=== PATIENT | male | born 1965 | race African-American/Black ===

== ENCOUNTER 2019-10-10 08:31 | Inpatient (IN) ==
[2019-10-10] MEDS ORDERED: NS 1,000 ML IV PRN (08:55)
--- NOTE | 2019-10-10 09:20 | PROVIDER DOCUMENTATION ---
HPI-Headache - General Chief Complaint: Headache Stated Complaint: MIGRAINE Time Seen by Provider: 10/10/19 08:58 Source: patient Allergies/Adverse Reactions: Patient Allergies Allergy/AdvReac Type Severity Reaction Status Date / Time No Known Allergies Allergy Verified 05/13/13 21:36 Home Medications: Home Medication List Medication Instructions Recorded Confirmed Last Taken Type Ergocalciferol (Vitamin D2) 1 cap PO . DIRECTED 10/10/19 10/10/19 Unknown History [Vitamin D] Ondansetron [Zofran] 8 mg PO Q8H PRN PRN 10/10/19 10/10/19 Unknown History Promethazine [Phenergan] 25 mg PO HS PRN 10/10/19 10/10/19 Unknown History - History of Present Illness-Headache Nature of Presenting Problem: Patient is a 54yo M who presents with complaints of a R sided migraine headache. Reports long hx of migraines for which he sees a Neurologist for. States this headache is worse than past headaches. Patient states he has had an "ongoing migraine" for 2 months, however the headache became severe this morning. Reports accompanying R arm and R leg numbness/weakness that began at approximately 0800, states symptoms are improving. Has tried numerous pain medications, Topamax, Aleve, and Zofran without improvement. Complains of dizziness, nausea/vomiting, photophobia, and phonophobia. Denies neck pain, back pain, fever/chills, CP, or SOB. Upon examination, patient is A&Ox3 and non-toxic in appearance. Headache Location: reports: frontal (R) Quality of Pain: reports: throbbing Severity: reports: moderate Onset/Duration: reports: 1-3 hours ago (worsened 0645), other (onset 2 months ago) Timing: reports: still present, improving (R arm/R leg numbness/weakness) Headache Context: reports: nothing Headache History: reports: history of migraines Any recent trauma/injury?: reports: none Headache severity at the maximum: severe Headache Exacerbated by:: reports: light, noise, movement Modifying Factors: improves with: nothing Associated Symptoms: reports: headache, dizziness, nausea, numbness in legs/feet (R), paresthesia (R arm), vomiting, vision changes (photophobia). denies: chest pain, neck/back pain, fever/chills Similar Symptoms Previously?: Yes (hx of migraines; however this migraine different) Recently seen or treated by another doctor?: No Review of Systems - Adult - REVIEW OF SYSTEMS - ADULT Constitutional: reports: no symptoms reported. denies: chills, fever Eyes: reports: see HPI, other (photophobia). denies: decreased vision, blurred vision Ears, Nose, Mouth & Throat: reports: no symptoms reported Cardiovascular: reports: no symptoms reported. denies: chest pain, palpitations Respiratory: reports: no symptoms reported. denies: cough, shortness of breath Gastrointestinal: reports: see HPI, nausea, vomiting. denies: abdominal pain Genitourinary: reports: no symptoms reported Musculoskeletal: reports: no symptoms reported. denies: back pain, neck pain Integumentary: reports: no symptoms reported Neurological: reports: see HPI, dizziness/vertigo, headache/migraines, numbness, paresthesia, other (R arm/R leg weakness; phonophobia). denies: slurred speech Psychiatric: reports: no symptoms reported Endocrine: reports: no symptoms reported Past History - Adult - PAST MEDICAL HISTORY-ADULT Review of Records: reports: Nursing Assessment Review, Medications Reviewed Neurological: reports: headaches/migraines - IMMUNIZATION STATUS Childhood Immunizations: See Nurse Assessment Flu Vaccine: See Nurse Assessment - SOCIAL HISTORY Smoking: non-smoker Physical Exam- Neurological - Physical Exam-Neuro Initial Vital Signs Reviewed: Yes General Appearance: alert, mild distress. negative: lethargic, slow to respond, obtunded Eye Exam: bilateral eye: normal inspection, PERRL, EOMI, photophobia HENMT: normocephalic/atraumatic, moist mucous membranes. negative: angioedema Head Injury: no evidence of injury Neck: non-tender, full range of motion, supple, normal inspection Respiratory: chest non-tender, lungs clear, normal breath sounds, no pleuratic chest pain, no respiratory distress, no accessory muscle use. 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 negative: abnormal speech, facial asymmetry, facial droop, facial paresthesias Coordination/Gait: ABN nose to finger (R) Motor/Sensory: pronator drift (R), weak motor strength RUE, weak motor strength RLE Neurologic: motor weakness (R arm/R leg), sensory deficit (R). negative: aphasia, EOM palsy, facial droop Integumentary: normal color, warm/dry. negative: cyanosis, jaundice, pallor Psych/Mental Status: normal mood/affect, normal thought content, normal thought process, oriented x 3 - Glascow Coma Scale Best Eye Response: (4) open spontaneously Best Verbal Response: (5) oriented Best Motor Response: (6) obeys commands Total Glascow Score: 15 Progress - PLAN OF CARE/RESULTS Progress/Plan/Lab Results: Laboratory Results - last 24 hr 10/10/19 10/10/19 10/10/19 09:39 09:40 09:40 WBC 5.70 RBC 5.05 Hgb 14.4 Hct 42.9 MCV 85.0 MCH 28.5 MCHC 33.6 RDW Std Deviation 14.2 Plt Count 214 MPV 10.5 H Immature Gran % (Auto) 0.0 Neut % (Auto) 77.1 H Lymph % (Auto) 14.6 L [place] % (Auto) 7.5 Eos % (Auto) 0.4 Baso % (Auto) 0.4 Immature Gran # (Auto) 0.00 Neut # (Auto) 4.40 Lymph # (Auto) 0.83 L [place] # (Auto) 0.43 Eos # (Auto) 0.02 Baso # (Auto) 0.02 PT INR PTT (Actin FS) Sodium 143 Potassium 3.6 Chloride 106 Carbon Dioxide 24 L Anion Gap 13 BUN 13 Creatinine 0.9 Estimated GFR/1.73 m2 > 60 BUN/Creatinine Ratio 14 Glucose 104 POC Glucose 86 Calculated Osmolality 285 Calcium 9.1 Total Bilirubin 0.30 AST 17 ALT 15 Alkaline Phosphatase 59 Troponin T Total Protein 7.1 Albumin 4.3 Globulin 3.0 Albumin/Globulin Ratio 2.0 Urine Source Urine Color Urine Turbidity Urine pH Ur Specific [place] Urine Protein Ur Glucose (Stick) Ur Ketones (Stick) Urine Blood Urine Nitrite Urine Bilirubin Urobilinogen Dipstick Urine Leukocytes Urine WBC (Auto) Urine RBC (Auto) U Epithel Cells (Auto) Urine Bacteria (Auto) Urine Opiates Screen Ur Oxycodone Screen Urine Methadone Screen U Propoxyphene Qual Ur Barbituates Screen Ur Tricyclics Screen Ur Phencyclidine Scrn Ur Amphetamines Screen U Methamphetamines Scrn U Benzodiazepines Scrn Urine Cocaine Screen U Cannabinoids Screen 10/10/19 10/10/19 10/10/19 09:40 09:40 09:52 WBC RBC Hgb Hct MCV MCH MCHC RDW Std Deviation Plt Count MPV Immature Gran % (Auto) Neut % (Auto) Lymph % (Auto) [place] % (Auto) Eos % (Auto) Baso % (Auto) Immature Gran # (Auto) Neut # (Auto) Lymph # (Auto) [place] # (Auto) Eos # (Auto) Baso # (Auto) PT 13.2 INR 0.95 PTT (Actin FS) 34.3 Sodium Potassium Chloride Carbon Dioxide Anion Gap BUN Creatinine Estimated GFR/1.73 m2 BUN/Creatinine Ratio Glucose POC Glucose Calculated Osmolality Calcium Total Bilirubin AST ALT Alkaline Phosphatase Troponin T < 0.010 Total Protein Albumin Globulin Albumin/Globulin Ratio Urine Source CLEAN CATCH Urine Color YELLOW Urine Turbidity CLEAR Urine pH 8.5 Ur Specific [place] 1.020 Urine Protein TRACE A Ur Glucose (Stick) NEGATIVE Ur Ketones (Stick) NEGATIVE Urine Blood NEGATIVE Urine Nitrite NEGATIVE Urine Bilirubin NEGATIVE Urobilinogen Dipstick NORMAL Urine Leukocytes NEGATIVE Urine WBC (Auto) <10 Urine RBC (Auto) <10 U Epithel Cells (Auto) <10 Urine Bacteria (Auto) NEGATIVE Urine Opiates Screen Ur Oxycodone Screen Urine Methadone Screen U Propoxyphene Qual Ur Barbituates Screen Ur Tricyclics Screen Ur Phencyclidine Scrn Ur Amphetamines Screen U Methamphetamines Scrn U Benzodiazepines Scrn Urine Cocaine Screen U Cannabinoids Screen 10/10/19 09:52 WBC RBC Hgb Hct MCV MCH MCHC RDW Std Deviation Plt Count MPV Immature Gran % (Auto) Neut % (Auto) Lymph % (Auto) [place] % (Auto) Eos % (Auto) Baso % (Auto) Immature Gran # (Auto) Neut # (Auto) Lymph # (Auto) [place] # (Auto) Eos # (Auto) Baso # (Auto) PT INR PTT (Actin FS) Sodium Potassium Chloride Carbon Dioxide Anion Gap BUN Creatinine Estimated GFR/1.73 m2 BUN/Creatinine Ratio Glucose POC Glucose Calculated Osmolality Calcium Total Bilirubin AST ALT Alkaline Phosphatase Troponin T Total Protein Albumin Globulin Albumin/Globulin Ratio Urine Source Urine Color Urine Turbidity Urine pH Ur Specific [place] Urine Protein Ur Glucose (Stick) Ur Ketones (Stick) Urine Blood Urine Nitrite Urine Bilirubin Urobilinogen Dipstick Urine Leukocytes Urine WBC (Auto) Urine RBC (Auto) U Epithel Cells (Auto) Urine Bacteria (Auto) Urine Opiates Screen NONE DETECTED Ur Oxycodone Screen NONE DETECTED Urine Methadone Screen NONE DETECTED U Propoxyphene Qual NONE DETECTED Ur Barbituates Screen NONE DETECTED Ur Tricyclics Screen NONE DETECTED Ur Phencyclidine Scrn NONE DETECTED Ur Amphetamines Screen NONE DETECTED U Methamphetamines Scrn NONE DETECTED U Benzodiazepines Scrn NONE DETECTED Urine Cocaine Screen NONE DETECTED U Cannabinoids Screen NONE DETECTED Orders Category Date Time Status Admit - [facility] Routine AdmDCTranf 10/10/19 11:19 Active Activity - Up with Assistance ORDERED Care 10/10/19 11:19 Active Apply Mechanical Device [QM] ORDERED Care 10/10/19 11:19 Active Elevate Head of Bed DIRECTED Care 10/10/19 11:19 Active Finger Stick Blood Sugar (ED) DIRECTED Care 10/10/19 09:10 Completed IV Insertion ORDERED Care 10/10/19 11:19 Completed Intake and Output-Strict ORDERED Care 10/10/19 11:19 Active Neurological Check ORDERED Care 10/10/19 11:19 Active Saline Loc NOW Care 10/10/19 09:10 Completed Vital Signs Order Q 4-HR ASSESS Care 10/10/19 11:19 Active Z-Document. for Tele Applied ORDERED Care 10/10/19 11:19 Completed Social Service Consult Routine Cons 10/10/19 11:[address] HEAD W/O CONTRAST [CT] Stat Exams 10/10/19 08:56 Completed MRA BRAIN W/O CONTRAST [MRI] Routine Exams 10/10/19 10:21 Completed MRI BRAIN W/O CONTRAST [MRI] Routine Exams 10/10/19 10:21 Completed BASIC METABOLIC PANEL [CHEM] Routine Lab 10/11/19 06:00 Ordered CBC WITH DIFF [HEME] Routine Lab 10/11/19 06:00 Ordered CBC WITH ELECTRONIC DIFF [HEME] Stat Lab 10/10/19 09:40 Completed COMPREHENSIVE METABOLIC PANEL [CHEM] Stat Lab 10/10/19 09:40 Completed LIPID PROFILE W/DIR LDL [LIPIDS] Routine Lab 10/11/19 06:00 Ordered PROTIME WITH INR [COAG] Stat Lab 10/10/19 09:40 Completed PTT [COAG] Stat Lab 10/10/19 09:40 Completed TROPONIN T Stat Lab 10/10/19 09:40 Completed URINALYSIS W/POSS RFLX CULT [URINALYSIS] Stat Lab 10/10/19 09:52 Completed URINE DRUG SCREEN PL Stat Lab 10/10/19 09:52 Completed 0.9% Sodium Chloride Inj [Ns] 1,000 ml Med 10/10/19 08:55 Discontinued IV As Directed mls/hr Acetaminophen [Tylenol] Med 10/10/19 11:19 Active 650 mg PO Q6H PRN PRN Aspirin Med 10/10/19 11:19 Active 325 mg PO DAILY Diphenhydramine [Benadryl] Med 10/10/19 09:58 Discontinued 25 mg IV NOW ONE Metoclopramide [Reglan] Med 10/10/19 09:58 Discontinued 10 mg IV NOW ONE Ondansetron [Zofran] Med 10/10/19 09:53 Discontinued 4 mg IV NOW ONE Ondansetron [Zofran] Med 10/10/19 11:19 Active 4 mg IV Q4H PRN PRN Telemetry [OM.EQ] Routine Oth 10/10/19 11:19 Active Carotid Ultrasound Routine Ther 10/10/19 10:23 Completed EKG [EKG] Stat Ther 10/10/19 08:56 Draft Echo Spec/Color Doppler Routine Ther 10/10/19 10:23 Draft Physical Therapy Eval/Treatment [OM.PT] Routine Ther 10/10/19 11:19 Active Speech Evaluation [OM.SPT] Routine Ther 10/10/19 11:19 Active Transfer/Admit Order [TRANSFER] Routine Transfer 10/10/19 10:19 Completed Imaging results, plan of care, and need for admission for TIA workup discussed with patient who agrees with and verbalizes understanding. Result Diagrams: 10/10/19 09:40 10/10/19 09:40 - EKG 1 Time of EKG reading by physician:: 10:00 EKG Read and Signed by:: Chao Graves EKG Interpretation (*Must complete 3 of following elements*): Normal (Borderline) Rate: 67 Rhythm: NSR [place]: normal QRS: LVH (minimal voltage criteria, may be normal variant) OH Interval: normal ST Wave: normal - CT/MRI 1 CT Study: Head Impression: See EMR Report ([facility] - [address], [address], [place] [address] [facility] - [address] , [place] [address] Department of Imaging Patient: SAGRARIO MCCAINADM Date: 10/10/19MR#: [id number] : 1965ADM Status: PRE ERAcct#: [id number] Age/Sex: 54/MRoom/Bed: Loc: P.ED Ordering Physician: Chao Graves MD Family Physician: Jey Man MD Reason for Procedure: cva sx ___ Signed EXAM: CT HEAD W/O CONTRAST - 10/10/2019 HISTORY: cva sx TECHNIQUE: CT head without contrast COMPARISON: None. FINDINGS: There is no evidence of intracranial hemorrhage, mass effect, midline shift, or hydrocephalus. There is no evidence of infarct, although acute infarcts may not be immediately visible. There is no evidence of skull fracture. Visualized portions of paranasal sinuses and mastoid air cells appear clear except for a mucous retention cyst at the base of the right frontal sinus. 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 IMPRESSION: No visible acute intracranial abnormality. No hemorrhage or mass effect. This exam was performed using automated exposure control, adjustment of mA or kV according to patient size, and/or use of iterative reconstruction technique. Electronically signed by Jey Obregon 10/10/2019 9:36 AM 10/10/19 0936 Interpreting Physician: Jey Obregon MD Dictated Date/Time: 931 cc: Chao Graves MD; Jey Man MD) - CONSULTS/PCP/HOSPITALIST Notification #1 *Consult/PCP/Hospitalist*: Dr. Mccoy, Hospitalist Time Discussed: 09:55 Reason/Comments: Concern for TIA Consult Disposition: Will see in ED, Admit Departure - Departure Date of Disposition Decision: 10/10/19 Time of Disposition Decision: 09:55 DIAGNOSIS: Weakness of right upper extremity, Weakness of right lower extremity, Numbness and tingling of right arm, Numbness and tingling of right leg, Sensory deficit, right Migraine Qualifiers: Migraine type: unspecified Status migrainosus presence: without status migrainosus Intractability: not intractable Qualified Code(s): G43.909 - Migraine, unspecified, not intractable, without status migrainosus Disposition: ADMITTED INPATIENT 09 Certified Medical Emergency: Emergent Condition: Stable - Critical Care Note This patient required my direct & personal management of CC.: No Attestation - Physician/ NATALIIA Attestation Patient care was provided by Advanced Practice Provider:: Yes Advanced Practice Provider:: Viji Back Advanced Practice Provider documentation review:: The Mid-level provider documentation, treatment plan and medical decision making was reviewed by the physician who agrees with all treatment and medical decision making by the [facility]. The physician spent face to face time with patient:: No Advanced Practice Provider documentation review:: Supervising physician onsite and consulted in the evaluation and care of this patient. The physician did not have a face to face encounter with the patient. - NIH Stroke Scale NIH Type: Initial Evaluation Level of Consciousness: 0-Alert LOC Questions (ask month and age): 0-Answers Both Correctly LOC Commands (ask to open & close eyes;make a fist, let go): 0-Obeys Both Correctly Best Gaze (horizontal eye movement): 0-Normal Visual (use finger movement, counting or visual threat): 0-No Visual Loss Facial Palsy (show teeth or raise eyebrows & close eyes tght: 0-Symmetrical Movement Motor Function-left arm: 0-Normal Motor Function-right arm: 1-Drift Motor Function-left le-Normal Motor Function-right le-Drift Limb Ataxia([id number], or heel to carter): 2-Present in two limbs Sensory(pin prick to face,arms,trunk,legs-compare side/side): 1-Mild to Moderate Decrease in Sensation Best Language(name item/read sentence.Ex-Down to Earth): 0-No Aphasia Dysarthria(Pt read words or say words Ex.Mama,Tip-Top,Thanks: 0-Normal Articulation Extinction and Inattention: 0-Normal NIH Total Score: 4
--- NOTE | 2019-10-10 09:38 | Diag Imaging Result Doc PS360 ---
EXAM: CT HEAD W/O CONTRAST - 10/10/2019 HISTORY: cva sx TECHNIQUE: CT head without contrast COMPARISON: None. FINDINGS: There is no evidence of intracranial hemorrhage, mass effect, midline shift, or hydrocephalus. There is no evidence of infarct, although acute infarcts may not be immediately visible. There is no evidence of skull fracture. Visualized portions of paranasal sinuses and mastoid air cells appear clear except for a mucous retention cyst at the base of the right frontal sinus. 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 IMPRESSION: No visible acute intracranial abnormality. No hemorrhage or mass effect. This exam was performed using automated exposure control, adjustment of mA or kV according to patient size, and/or use of iterative reconstruction technique. Electronically signed by Jey Obregon 10/10/2019 9:36 AM
[2019-10-10] MEDS ORDERED: ZOFRAN IV ONE (09:53)
[2019-10-10] MEDS ORDERED: BENADRYL IV ONE (09:58)
[2019-10-10] MEDS ORDERED: REGLAN IV ONE (09:58)
[2019-10-10 09:59] LABS: URINE SOURCE CLEAN CATCH
[2019-10-10 10:03] LABS: BILIRUBIN URINE NEGATIVE (NEGATIVE); BLOOD URINE NEGATIVE (NEGATIVE); COLOR YELLOW; GLUCOSE URINE NEGATIVE (NEGATIVE); KETONE URINE NEGATIVE (NEGATIVE); LEUKOCYTES URINE NEGATIVE (NEGATIVE); NITRITE URINE NEGATIVE (NEGATIVE); PH URINE 8.5; PROTEIN URINE TRACE mg/dL (NEGATIVE); TURBIDITY URINE CLEAR (CLEAR); UROBILINOGEN URINE NORMAL (NORMAL)
[2019-10-10 10:04] LABS: UR EPITHELIAL CELLS <10 /HPF (<10); URINE BACTERIA NEGATIVE /HPF; URINE RBC <10 /HPF (<10); URINE WBC <10 /HPF (<10)
[2019-10-10 10:09] LABS: BASO# 0.02 X1000 (0.0-0.2); BASO% 0.4 % (0.0-0.8); EOS# 0.02 X1000 (0.0-0.7); EOS% 0.4 % (0.0-10.0); HEMATOCRIT 42.9 % (42.0-52.0); HEMOGLOBIN 14.4 g/dL (14.0-18.0); LYMPH# 0.83 X1000 (1.2-3.4); LYMPH% 14.6 % (20.5-51.1); MCH 28.5 PG (27-31); MCHC 33.6 g/dL (33-37); MONO# 0.43 X1000 (0.11-0.59); MONO% 7.5 % (1.7-9.3); MPV 10.5 FL (7.4-10.4); NEUT% 77.1 % (42.2-75.2); PLT 214 X1000 (130-400); RBC 5.05 XMIL (4.7-6.1); RDW 14.2 % (11.5-14.5)
[2019-10-10 10:13] LABS: UR AMPHETAMINES QUAL NONE DETECTED (NONE DETECT); UR BARBITUATES QUAL NONE DETECTED (NONE DETECT); UR BENZODIAZEPIN QUAL NONE DETECTED (NONE DETECT); UR CANNABINOIDS QUAL NONE DETECTED (NONE DETECT); UR COCAINE QUAL NONE DETECTED (NONE DETECT); UR METHADONE QUAL NONE DETECTED (NONE DETECT); UR METHAMPHETAMINE QUAL NONE DETECTED (NONE DETECT); UR OPIATES QUAL NONE DETECTED (NONE DETECT); UR OXYCODONE QUAL NONE DETECTED (NONE DETECT); UR PCP QUAL NONE DETECTED (NONE DETECT); UR PROPOXYPHENE QUAL NONE DETECTED (NONE DETECT); UR TCA QUAL NONE DETECTED (NONE DETECT)
[2019-10-10 10:17] LABS: INR 0.95; PROTIME 13.2 Seconds (11.0-16.0)
[2019-10-10 10:18] LABS: PTT 34.3 Seconds (22.3-41.8)
[2019-10-10 10:36] LABS: AGAP 13; ALBUMIN 4.3 g/dL (3.5-5.0); ALKALINE PHOSPHATASE 59 U/L (32-122); BUN 13 mg/dL (8-22); CALCIUM 9.1 mg/dL (8.8-10.2); CHLORIDE 106 mmol/L (98-107); COSMO 285; CREATININE 0.9 mg/dL (0.7-1.2); ESTIMATED GFR > 60; GLUCOSE 104 mg/dL (70-104); GOT 17 U/L (10-34); GPT 15 U/L (10-44); POTASSIUM 3.6 mmol/L (3.5-5.1); SODIUM 143 mmol/L (136-145); TCO2 24 mmol/L (25-35); TOTAL PROTEIN 7.1 g/dL (6.3-8.3)
--- NOTE | 2019-10-10 10:54 | HISTORY AND PHYSICAL ---
ADDENDUM REPORT: The patient is a 54-year-old male who has a known history of migraines. States he has had problems with migraines for the last 1-1/2 years, sometimes severe. Approximately 8 months ago or so, he had similar symptoms of left-sided weakness. After a severe headache everything resolved. He awakened this morning with a headache but felt fine, went to work and started having right-sided weakness in his right upper and lower extremity. Notes that he did not fall from the weakness, but started having some tingling and eventually came to the ER. We were notified of him approximately 3 to 4 hours after his symptoms had started. Currently, he has some right-sided weakness. He was unable to raise his hand against gravity to shake my hand; however, when he was talking, he was able to raise his hand off the bed against gravity, as well as to move his fingers and clench his fist. However, when tested, his strength is 1/6. He is awake, alert, oriented. He does appear to be in pain from a headache. He denies any fevers, chills, cough, congestion. Denies any symptoms prior to this morning other than his chronic headaches. CT of the head was normal. Labs so far have been normal. We are going to check an MRI, carotid, and will follow. cc: Manpreet Mccoy MD
--- NOTE | 2019-10-10 11:13 | EKG Report ---
Test Performed on : 10/10/2019 09:59:53 AM Test Reason : cvs sx Blood Pressure : / mmHG Vent. Rate : 067 BPM Atrial Rate : 067 BPM P-R Int : 160 ms QRS Dur : 094 ms QT Int : 412 ms P-R-T Axes : 069 016 031 degrees QTc Int : 435 ms Normal sinus rhythm. Minimal voltage criteria for LVH, may be normal variant Borderline ECG No previous ECGs available Unconfirmed Result
[2019-10-10] MEDS ORDERED: ZOFRAN IV PRN (11:19)
--- NOTE | 2019-10-10 13:45 | Vascular Study Report ---
EXAM: Carotid Ultrasound - 10/10/2019 HISTORY: r/o cva TECHNIQUE: Carotid flow studies COMPARISON: None. FINDINGS: There is no substantial atherosclerotic plaquing identified in the right carotid system. Maximum systolic velocity in the right internal carotid is 79 cm/s, and maximum diastolic velocity is 17 cm/s. The right internal to common carotid systolic velocity ratio is 0.70. The flow velocities and ratio suggests 0-39% stenosis at the right internal carotid. The right vertebral demonstrates antegrade flow. There is no substantial atherosclerotic plaquing identified in the left carotid system. Maximum systolic velocity left internal carotid is 40 cm/s, maximum diastolic velocity is 20 cm/s. The left internal to common carotid systolic velocity ratio is 0.38. The flow velocities and ratio suggests 0-39% stenosis at the left internal carotid. The left vertebral demonstrates antegrade flow. IMPRESSION: 0-39% stenosis at right internal carotid. 0-39% stenosis at left internal carotid. Electronically signed by Jey Obregon 10/10/2019 1:42 PM
--- NOTE | 2019-10-10 14:21 | Diag Imaging Result Doc PS360 ---
EXAM: MRI BRAIN W/O CONTRAST - 10/10/2019 HISTORY: r/o cva TECHNIQUE: MRI brain without contrast COMPARISON: 10/10/2019 CT head without contrast FINDINGS: There is no evidence of intracranial hemorrhage, mass effect, midline shift, or hydrocephalus. The diffusion weighted images show no areas of restricted diffusion (no evidence of acute infarct). There are no other substantial signal abnormalities identified. IMPRESSION: Unremarkable exam. No evidence of infarct. Electronically signed by Jey Obregon 10/10/2019 2:18 PM
--- NOTE | 2019-10-10 14:28 | Diag Imaging Result Doc PS360 ---
EXAM: MRA BRAIN W/O CONTRAST - 10/10/2019 HISTORY: r/o cva TECHNIQUE: MRA brain without contrast. [id number] MR angiogram of the intracranial circulation with 3-D MIP images obtained. COMPARISON: None. FINDINGS: The distal portions of the bilateral anterior cerebral arteries appear to arise from a common trunk. The common trunk is supplied via the left internal carotid artery. This is compatible with congenital variant or anomaly. No major intracranial arterial occlusion identified. There is possibly some narrowing of the distal portions of the bilateral posterior cerebral arteries. No other discrete stenosis of major intracranial arteries identified. There is no discrete aneurysm identified. 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 Possible narrowing of the distal portions of the bilateral posterior cerebral arteries. Electronically signed by Jey Obregon 10/10/2019 2:25 PM
--- NOTE | 2019-10-10 15:14 | ECHO REPORT ---
ORDER DATE: 10/10/2019 INTERPRETING PHYSICIAN: Dr. Raudel Irving. ECHOCARDIOGRAPHIC MEASUREMENTS: 1. Interventricular septum: 1.4 cm. 2. Left ventricular posterior wall: 1.3 cm. 3. Diastolic diameter: 4.1 cm. 4. Left atrium: 2.4 cm. 5. Aorta: 3.4 cm. SUMMARY OF THE 2-DIMENSIONAL IMAGIN. Aortic valve leaflets are trileaflet. 2. Pulmonic valve was normal. 3. Tricuspid valve was normal. 4. Mitral valve was normal. 5. Normal left ventricular cavity size. 6. Concentric left ventricular hypertrophy. 7. Estimated ejection fraction of 65%. 8. There is mild mitral regurgitation. 9. Mild tricuspid regurgitation. 10. Peak velocity across the tricuspid valve was less than 2 meters per second. 11. Peak velocity across the aortic valve less than 2 meters per second. 12. By Doppler studies, there is no aortic stenosis or regurgitation. 13. There is no pericardial effusion or obvious intracardiac mass or thrombus seen. 14. Normal right ventricular cavity size and function. cc: Raudel Irving MD
--- NOTE | 2019-10-10 15:52 | HISTORY AND PHYSICAL ---
PRIMARY CARE PROVIDERS: Jey Man MD NEUROLOGIST: Leida out [facility] CHIEF COMPLAINT: Headache. HISTORY OF PRESENT ILLNESS: Mr. To is a 54-year-old gentleman who really reports no past medical history except ongoing issues with severe migraines for 1 year. He reports, however, over the last 3 weeks he has had some issues with hypertension but is not on any medications for it. He has been followed by neurologist out [facility] for these migraines. He reported twice last year with these migraines. They were severe and he did have some associated weakness with it, but not this bad. He reports random things tend to trigger them such as headlights on cars. Sometimes the sun, the other day a thunder storm treated triggered. He does not know any of any foods that trigger his migraines. He reported this morning at 3 a.m. when he got up he did not feel right, but he went ahead and went into work. When he walked into a particular area with the lights were he felt funny. He had an episode of nausea and vomiting. Then his right leg and arm went weak. He had 2 falls as a result of that. He does have photophobia and phonophobia. At this time, he does not feel that the weakness is resolving. He has not appreciated any slurred speech or difficulty swallowing. Workup in the ED with a head CT did not show anything acute. His EKG shows a normal sinus rhythm, as well as criteria for LVH. Laboratory data is essentially normal. We will put him and do a full evaluation for TIA versus CVA. PAST MEDICAL HISTORY: Migraines. PAST SURGICAL HISTORY: Denies. FAMILY HISTORY: No coronary artery disease. No diabetes. Father of lung cancer at the age of 80. SOCIAL HISTORY: Works at [employer]. He does have a living sister. He denies any tobacco vaping, marijuana or alcohol or illicit drug use. ALLERGIES: No known drug allergies. HOME MEDICATIONS: Are not verified yet. They are currently being compiled. REVIEW OF SYSTEMS: Twelve-point review of systems completely negative except for those mentioned in HPI. PHYSICAL EXAMINATION: VITAL SIGNS: Temperature is 97.6 degrees, heart rate 55, respirations 20, blood pressure 129/88, O2 is 100% on room air. GENERAL: Mr. To is a 54-year-old male who is lying in the bed on his left side with his eyes closed in no acute distress. He awakens easily. HEENT: Atraumatic, normocephalic. PERRL. NECK: Supple. Trachea midline. Mucous membranes are moist. CARDIOVASCULAR: S1, S2 appreciated. No murmurs, gallops, rubs noted. RESPIRATORY: Lung sounds clear bilaterally. GASTROINTESTINAL: Abdomen soft, nontender, nondistended. Positive bowel sounds 4 quadrants. NEUROLOGIC: The patient was initially asleep lying on his left side. However, he awakened easily to voice. He answered all questions appropriately. However, upon physical examination his strength on the right was 1/6 on upper extremity. He was maybe 3/6 on the left. He had a weak smile. He barely stuck out his tongue. I could not get him to shoulder shrug at all. He barely moved his left foot. He would not move his right leg. He could not lift either arm off the bed, however they were able to stand him up to weigh him previously in the room. He feels that his right hand is swollen. However, there is no obvious swelling or abnormalities. There is no facial drooping. There is no slurred speech. No facial numbness. No swelling. However, he feels like the right side of his face is swollen. DIAGNOSTICS: Head CT did not show anything acute. Echocardiogram currently pending. Brain MRI, MRA pending. Carotid Dopplers pending. LABORATORY DATA: White count 5, hemoglobin and hematocrit 14 and 42, platelet count is 214,000. Sodium 143, potassium 3.6, BUN 13, creatinine 0.9, blood glucose is 104. Urinalysis is negative. Toxicology screen negative. The patient states he takes oxycodone; there was none detected. ASSESSMENT AND PLAN: 1. Known migraine headaches with reported right upper and lower extremity weakness with some numbness and tingling. We will rule out for cerebrovascular accident, transient ischemia attacks for workup with MRI, MRA, carotids, echocardiogram. Head CT was negative. We will do complete neuro checks. Physical therapy, occupational therapy, speech and swallow evaluation. Check lipid profile in the a.m. Continue daily aspirin. 3. Further recommendations to follow physician evaluation, laboratory and diagnostic data. Dictated by TEODORO Armas for Manpreet Mccoy MD cc: MD Manpreet Quintana MD [facility]
[2019-10-10] MEDS: ASPIRIN PO SCH (16:29)
[2019-10-10] MEDS: TYLENOL PO PRN (20:25)
[2019-10-11 06:36] LABS: BASO# 0.02 X1000 (0.0-0.2); BASO% 0.4 % (0.0-0.8); EOS% 2.2 % (0.0-10.0); HEMATOCRIT 44.2 % (42.0-52.0); HEMOGLOBIN 14.4 g/dL (14.0-18.0); LYMPH# 1.87 X1000 (1.2-3.4); LYMPH% 40.2 % (20.5-51.1); MCH 27.9 PG (27-31); MCHC 32.6 g/dL (33-37); MCV 85.5 FL (81-99); MONO# 0.51 X1000 (0.11-0.59); MPV 10.2 FL (7.4-10.4); NEUT# 2.15 X1000 (1.4-6.5); NEUT% 46.2 % (42.2-75.2); PLT 207 X1000 (130-400); RBC 5.17 XMIL (4.7-6.1); RDW 14.5 % (11.5-14.5); WBC 4.65 X1000 (4.8-10.8)
[2019-10-11 06:57] LABS: AGAP 10; BUN 15 mg/dL (8-22); CALCIUM 8.9 mg/dL (8.8-10.2); CHLORIDE 106 mmol/L (98-107); COSMO 278; CREATININE 0.9 mg/dL (0.7-1.2); ESTIMATED GFR > 60; GLUCOSE 90 mg/dL (70-104); POTASSIUM 3.8 mmol/L (3.5-5.1); SODIUM 139 mmol/L (136-145); TCO2 23 mmol/L (25-35)
[2019-10-11] MEDS: ASPIRIN PO SCH (08:42)
--- NOTE | 2019-10-11 09:47 | PROGRESS NOTE ---
DATE: 10/11/2019 SUBJECTIVE: The patient still has sporadic neurologic complaints. He is starting to feel his right foot a little bit better. OBJECTIVE: Vital Signs: On physical exam, vital signs reviewed. Temperature 97.7, pulse 57, respiratory rate 18, blood pressure 101/64. General: Patient is awake, alert. He is in no respiratory distress. HEENT: Normocephalic. Neck: Supple. Cardiovascular: Regular rate. Chest: Clear. Abdomen: Soft. Neurologic: Difficult to actually assess his neurologic exam. He appears completely unable to plantar flex or dorsiflex his foot. However, he is able to use his leg to stand up to get weight check. This would be inconsistent at best. 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 ASSESSMENT: 1. Acute neurologic event, likely stress related. 2. Migraine. PLAN: Thankfully his MRI, CT, carotid, and cholesterol all are normal. We will continue to follow. Hopefully, his symptoms will improve and he can be discharged home. cc: Manpreet Mccoy MD
[2019-10-11] MEDS: TYLENOL PO PRN ×2 (11:56→19:24)
--- NOTE | 2019-10-11 12:38 | CONSULTATION ---
DATE OF CONSULTATION: 10/11/2019 HISTORY OF PRESENT ILLNESS: Mr. To is 54 years old and he reports headache and right-sided weakness. History from the patient is that he began having headaches as a teenager. In recent years, headaches are typically unilateral, mostly retro-orbital and parietal, pounding and throbbing, lasting 2 days. Headache sometimes lasts as long as 4 days. He reports headaches occur about 3 times a month, lasting 2 or more days per episode. He believes the right and left retro-orbital areas are affected with equal frequency, but each headache is unilateral. He sometimes occasionally has some blurred vision or cloudy vision during headache. He has nausea, occasional vomiting, prominent photophobia and phonophobia with headache. Once, approximately 13 months ago, he was having a bad headache, stood to go to the bathroom, felt odd, noticed cloudy vision and fell. At that point, he discovered numbness in the left limbs. That resolved spontaneously over about 8 hours, by his report. Otherwise, he has never had focal neurologic feature to headache before yesterday. He was at work yesterday with a moderate headache, not the worst headache of his life, but not a mild headache. Headache was right-sided. He became nauseated, went to the bathroom, vomited, got some emesis on his clothing and cleaned that off. As he left the bathroom, he felt lightheaded and dizzy. He decided he should leave work. He called a family member to pick him up. As he was exiting the workplace, he remembers reaching to a handrail on the left, missing the handrail with his left hand and falling. He discovered that his right leg seemed to be weak. Fall was witnessed by coworkers who helped him and assisted him so that he got down without injury. He then noticed weakness in the right arm. There was not clear language disturbance. There was not a focal vision disturbance. There was never altered consciousness, altered awareness, memory gap. Based on his history, there was not dysarthria or dysphagia. He was picked up and carried by 3 men to a car, transported to the hospital, evaluated in the emergency room and admitted. He reports his deficit persisted through the day yesterday. Today, he believes he is a little bit better. He notices some discomfort in the right foot and right arm which he interprets to be sign of improvement. There is no history of serious head injury. He has never had diagnosed stroke, seizure, other neurologic event. He denies ethanol misuse. He denies illicit drug use. Caffeine intake is variable, usually a few days per week. He has never noticed caffeine intake to influence his headaches. There is family history of headache, including his mother. For headache management, he started topiramate with Trokendi XR within the last year. He believes his Trokendi XR dose is 100 mg daily. He believes that was not providing substantial benefit, but he was not having any adverse effects. He reports adding divalproex at uncertain dose a few months ago, and he believes that has provided some benefit. He continues divalproex and Trokendi, but he is not certain about the doses. For abortive management, he has sumatriptan, uncertain dose, to use as needed and that helps often. He reports using Emgality monthly for about 6 months without benefit, and he stopped that within the last few months. He does not recall taking amitriptyline or beta wei. He reports Dr. Naranjo has been his treating neurologist in [place] with last visit about a month ago. He reports first scheduled [facility] evaluation in [place] in about 2 weeks. Workup here includes noncontrast CT followed by noncontrast brain MRI and brain MRA. These are all unremarkable. Routine labs show nothing remarkable. Urine drug screen was all negative on admission. He has been afebrile. Systolic blood pressures have ranged 100s to 120s. PHYSICAL EXAMINATION: On exam, Mr. To is awake, alert, attentive, appropriate, oriented. Speech is not dysarthric. Language function is intact on usual bedside testing. Recent and remote memory are good. Head and neck are unremarkable. There is no meningismus. Visual blanca are full, tested grossly by confrontational finger counting monocularly and binocularly. Extraocular movements full. Pupils react to light. Facial motility is symmetric. He has some equivocal responses on light touch testing of sensation across the face. Gag is intact. Tongue is midline. Shoulder shrug is equal. Strength is normal in the left limbs. On the right, there was not a definite motor deficit. He demonstrated some voluntary contraction stiffening each right limb rather than performing the tasks requested. When I passively elevated the right arm or leg from the bed, he maintained that position for a 0.5 second or so before controlling the limb in soft descent to the bed. There was right gluteus meredith contraction when he raised his left leg while supine. There was not similar left gluteus meredith contraction when he was asked to attempt to raise his right leg. Plantar response is silent bilaterally. Reflexes are 1+ at the ankles, 1+ at the knees, 1+ at the wrists symmetrically. His responses on sensory testing are inconsistent, but he generally reports better sensation over the left limbs than the right. His responses on proprioception testing in the right hand at the second finger PIP joint were so consistently incorrect as to indicate good proprioception present. Proprioception is normal in the left index finger PIP joint. I did not test his gait. As I left the bedside, he reported need to use a urinal. I offered to help and he declined. As I was leaving, I observed him moving himself around in the bed using his right limbs much more purposefully than he had done when asked to perform certain tasks with the right limbs. IMPRESSION: 1. History sounds like episodic migraine, frequent headaches. He may be showing some benefit with current management with topiramate and divalproex. He told me he thought his sister had those medications with her today to check doses, but she does not. I cannot find a listing of his current doses. I believe there has been some inconsistency or discrepancy with his prior medication dose reports and those inconsistencies have not yet been rectified even after phone call to his pharmacy. 2. Subjective right-sided weakness. I do not find an objective deficit. I encouraged him to be careful with activities, to use good sense, and to try not to get into any situation in which right-sided impairment might cause him to injure himself or someone else. I specifically suggested that he not drive until his right limbs are recovered. I would consider continuing topiramate and divalproex, consider increasing dose on one of those and then possibly tapering off the other. However, since he has headache specialty clinic appointment coming up so soon, I would not make any major changes today. I encouraged him to keep that appointment. Thanks for asking Neurology to see Mr. To. cc: MD YASSINE Elliott III
[2019-10-12] MEDS: ASPIRIN PO SCH (08:23)
[2019-10-12] MEDS: DEPAKOTE PO SCH ×2 (10:01→20:16)
[2019-10-12] MEDS: NON-FORMULARY MED PO SCH (10:01)
[2019-10-12] MEDS: TYLENOL PO PRN (16:41)
--- NOTE | 2019-10-12 17:57 | PROGRESS NOTE ---
DATE: 10/12/2019 SUBJECTIVE: The patient notes that he still is having a headache. He notes that he is starting to have pain in his left heel. He states that he is feeling better. OBJECTIVE: Vital signs reviewed. Temperature 97 degrees, pulse 54, respiratory rate 18, BP 108/70.General: The patient is awake. He is in no respiratory distress. Neck is supple. Cardiovascular: Regular rate. Chest clear. Abdomen soft. Extremities: Moves all extremities. Neurologic: His neurologic exam is quite nonfocal. Although he has weakness in his right upper extremity, this appears to wax and wane. He has been noted by Physical Therapy to have changing weakness. ASSESSMENT: 1. Migraine. We are going to restart his home medications. Certainly expect this migraine may be contributing to his neurologic issues. 2. Acute stress reaction. PLAN: We will continue to follow the patient. Hopefully his headache will improve and he can discharge home soon. cc: Manpreet Mccoy MD
[2019-10-13] MEDS: NON-FORMULARY MED PO SCH (11:05)
[2019-10-13] MEDS: ASPIRIN PO SCH (11:05)
[2019-10-13] MEDS: DEPAKOTE PO SCH ×2 (11:05→21:38)
[2019-10-13] MEDS: TYLENOL PO PRN ×2 (11:26→21:38)
--- NOTE | 2019-10-13 12:57 | PROGRESS NOTE ---
DATE: 10/13/2019 SUBJECTIVE: The patient states he is uncomfortable going home. States he would rather go to rehab. OBJECTIVE: Vital Signs: Temp 97 degrees, pulse 54, respiratory rate 18, BP 105/63. General: The patient is awake. He is in no distress. He still complains of being unable to move his right arm and leg. 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 HEENT: Normocephalic. Neck: Supple. CV: Regular rate. Chest: Clear. Abdomen: Soft. Extremities: Moves all extremities. Neurologic: His weakness on his right side is more pronounced when tested than through casual observation. ASSESSMENT: 1. Migraine. 2. Acute stress reaction. PLAN: We are going to continue the patient in the hospital. Will ask [facility] House Inspector to assist in possible discharge planning, and will follow. cc: Manpreet Mccoy MD
[2019-10-14] MEDS: ASPIRIN PO SCH (08:51)
[2019-10-14] MEDS: NON-FORMULARY MED PO SCH (08:51)
[2019-10-14] MEDS: DEPAKOTE PO SCH ×2 (08:51→21:12)
[2019-10-14] MEDS: TYLENOL PO PRN (17:51)
--- NOTE | 2019-10-14 22:05 | PROGRESS NOTE ---
DATE: 10/14/2019 SUBJECTIVE: Patient notes his bilateral heels are starting to hurt. Denies any change in his overall weakness. He did not ambulate to the shower today. PHYSICAL EXAM: Vital signs: Temperature 97.6 degrees, pulse 56, respiratory rate 18, BP 103/76. General: Patient is awake. Currently in no distress. HEENT: Normocephalic. Neck: Supple. Cardiovascular: Regular rate. Chest: Clear. Abdomen: Soft. Extremities: Moves all extremities. Neurologic: Difficulty previously as his neurologic function does appear to be waxing and waning. Discussed with Crew Clerk, who is currently enquiring of [facility] versus rehabilitation. cc: Manpreet Mccoy MD
[2019-10-15] MEDS: NON-FORMULARY MED PO SCH (10:09)
[2019-10-15] MEDS: DEPAKOTE PO SCH ×2 (10:09→21:02)
[2019-10-15] MEDS: ASPIRIN PO SCH (10:09)
--- NOTE | 2019-10-15 17:09 | PROGRESS NOTE ---
DATE: 10/15/2019 SUBJECTIVE: Patient still states he is having trouble ambulating, having trouble walking. Notes that he is having trouble using his right upper and lower extremity. PHYSICAL EXAM: Vital Signs: Temperature 97.5 degrees, pulse 56, respiratory rate 18, blood pressure 109/53. General: Patient is awake, currently in no respiratory distress. He was able to ambulate into the shower today. HEENT: Normocephalic, atraumatic. Cardiovascular: Sinus rhythm. Chest: Nonlabored. Extremities/Neurologic: No current change. ASSESSMENT: 1. Migraine. 2. Acute right-sided weakness that thankfully does appear to wax and wane. PLAN: We are going to continue patient in the hospital as he feels uncomfortable going home. We are awaiting word from [facility] regarding further inpatient treatment. cc: Manpreet Mccoy MD
[2019-10-15] MEDS: TYLENOL PO PRN (21:01)
[2019-10-16] MEDS: ASPIRIN PO SCH (08:51)
[2019-10-16] MEDS: DEPAKOTE PO SCH ×2 (08:51→20:32)
[2019-10-16] MEDS: NON-FORMULARY MED PO SCH (08:51)
--- NOTE | 2019-10-16 13:56 | PROGRESS NOTE ---
DATE: 10/16/2019 SUBJECTIVE: Patient has no new complaints. PHYSICAL EXAMINATION: Vital Signs: Reviewed and stable. Temperature 98, pulse 64, blood pressure 110/69. General: The patient is awake, alert, and pleasant. Speaks very soft, slow. Affect, appears somewhat depressed. HEENT: normocephalic. Neck: Supple. CV: Regular rate. Chest: Clear. Abdomen: Soft. Extremities: He is able to move extremities. Neurologic Examination: Has been somewhat inconsistent throughout the hospitalization as noted on notes. PLAN: We are going to continue him in the hospital. I have discussed discharge planning. [facility] was unable to take him. Hopefully, one of the local rehabs will be able. cc: Manpreet Mccoy MD MTDD
[2019-10-16] MEDS: TYLENOL PO PRN (21:07)
[2019-10-17] MEDS: NON-FORMULARY MED PO SCH (08:43)
[2019-10-17] MEDS: ASPIRIN PO SCH (08:44)
[2019-10-17] MEDS: DEPAKOTE PO SCH ×2 (08:44→20:22)
[2019-10-17] MEDS: FOLIC ACID 1 MG in NS 50 ML IV SCH (17:00)
[2019-10-17] MEDS ORDERED: FOLIC ACID ONE (17:00)
--- NOTE | 2019-10-17 18:01 | PROGRESS NOTE ---
DATE: 10/17/2019 SUBJECTIVE: The patient has no major complaints. OBJECTIVE: Vital Signs: Blood pressure 111/67, heart rate 62, respiratory rate 18, temperature 97.8 degrees, and oxygen saturation is 98% on room air. Cardiovascular: Regular rate and rhythm. Pulmonary: Bilateral breath sounds, clear to auscultation. Gastrointestinal: Soft, nontender, nondistended. Bowel sounds are positive. Neurologic: Still very weak in his legs. Cannot move them affectively. LABORATORY DATA: White count 4.6, hemoglobin and hematocrit of 14 and 44, platelets 207,000. Basic was normal. LDL is 145, which is pretty high. I really do not have a clear explanation. He is folate deficient, but his B12 levels look normal, free T4. PROBLEM LIST: Polyneuropathy, unclear if this is a TIA. I am really not sure what is going on there. Neurology felt that this may be episodic migraines. It is unclear exactly what is going on there. I do not know if he needs nerve conduction studies, but I'm not sure those are available at [facility]; but we will see how things look. cc: Wes Khan MD MTD
[2019-10-17] MEDS: TYLENOL PO PRN (20:22)
[2019-10-18] MEDS: LOVENOX SUBQ SCH (05:47)
[2019-10-18 06:16] LABS: BASO# 0.02 X1000 (0.0-0.2); BASO% 0.5 % (0.0-0.8); EOS# 0.09 X1000 (0.0-0.7); EOS% 2.3 % (0.0-10.0); HEMATOCRIT 42.2 % (42.0-52.0); HEMOGLOBIN 13.7 g/dL (14.0-18.0); LYMPH# 1.45 X1000 (1.2-3.4); LYMPH% 36.4 % (20.5-51.1); MCH 27.8 PG (27-31); MCHC 32.5 g/dL (33-37); MCV 85.8 FL (81-99); MONO# 0.52 X1000 (0.11-0.59); MONO% 13.1 % (1.7-9.3); MPV 10.2 FL (7.4-10.4); NEUT% 47.7 % (42.2-75.2); PLT 177 X1000 (130-400); RBC 4.92 XMIL (4.7-6.1); RDW 14.6 % (11.5-14.5); WBC 3.98 X1000 (4.8-10.8)
[2019-10-18 06:55] LABS: AGAP 12; BUN 23 mg/dL (8-22); CALCIUM 8.6 mg/dL (8.8-10.2); CHLORIDE 108 mmol/L (98-107); COSMO 283; ESTIMATED GFR > 60; GLUCOSE 94 mg/dL (70-104); POTASSIUM 3.9 mmol/L (3.5-5.1); SODIUM 140 mmol/L (136-145); TCO2 21 mmol/L (25-35)
[2019-10-18] MEDS: VITAMIN D PO SCH (09:50)
[2019-10-18] MEDS: NON-FORMULARY MED PO SCH (10:11)
[2019-10-18] MEDS: ASPIRIN PO SCH (10:11)
[2019-10-18] MEDS: DEPAKOTE PO SCH ×2 (10:11→20:17)
--- NOTE | 2019-10-18 15:16 | PROGRESS NOTE ---
DATE: 10/18/2019 SUBJECTIVE: The patient has no major complaints. OBJECTIVE: Vital Signs: Blood pressure is 111/82, heart rate of 60, respiratory rate of 18, temperature 98 degrees, 98% on room air. Cardiovascular: Regular rate and rhythm. Pulmonary: Bilateral breath sounds clear to auscultation. Gastrointestinal: Abdomen soft, nontender, nondistended. Bowel sounds are positive. LABORATORY DATA: White count 3.9, hemoglobin and hematocrit 13 and 42. Platelets 177,000. PROBLEM LIST: Polyneuropathy. Continue to monitor. He does have some folate deficiency. He has got some burning paresthesias, so I am going to start him on some Lyrica. He is already on Depakote, which I do not really know why he is on Depakote. In any case patient is just still weak and having difficulty getting up and around. I think he may need some nerve conduction studies and electronic myography at some point. DISPOSITION: Pending clinical status, we are waiting on rehab options for him. cc: Wes Khan MD MTDD
[2019-10-18] MEDS ORDERED: DITROPAN PO ONE (15:35)
[2019-10-18] MEDS: TYLENOL PO PRN (16:03)
[2019-10-18] MEDS: FOLIC ACID 1 MG in NS 50 ML IV SCH (16:27)
[2019-10-18] MEDS: LYRICA PO SCH (20:17)
[2019-10-19] MEDS: LOVENOX SUBQ SCH (06:18)
[2019-10-19] MEDS: NON-FORMULARY MED PO SCH (09:39)
[2019-10-19] MEDS: ASPIRIN PO SCH (09:39)
[2019-10-19] MEDS: DEPAKOTE PO SCH ×2 (09:39→22:41)
[2019-10-19] MEDS: LYRICA PO SCH ×3 (09:39→22:41)
[2019-10-19] MEDS: DITROPAN PO SCH ×2 (09:40→22:42)
[2019-10-19] MEDS: TYLENOL PO PRN ×2 (12:30→22:41)
--- NOTE | 2019-10-19 12:40 | PROGRESS NOTE ---
DATE: 10/19/2019 SUBJECTIVE: The patient still has kind generalized weakness. OBJECTIVE: Blood pressure is 104/65, heart rate of 55, respiratory rate of 17, temperature 97.9 degrees, 98% on room air.Cardiovascular: Regular rate and rhythm. Pulmonary: Bilateral breath sounds clear to auscultation. GI: Soft, nontender, nondistended. Bowel sounds are positive. LABORATORY DATA: I do not have any new data today. Sedimentation rate is normal. CPK is normal. I really do not have a clear idea what is causing this much neuropathy. PROBLEM LIST: 1. Polyneuropathy. He is folate deficient. I am going to titrate up on his Lyrica and we will see how things go and continue to monitor. 2. For his generalized weakness, we will plan to continue to see how he does from that standpoint. 3. Folate deficiency. We will continue treatment and follow. DISPOSITION: Pending clinical status. cc: Wes Khan MD
[2019-10-19] MEDS: FOLIC ACID PO SCH (17:12)
[2019-10-20] MEDS: LOVENOX SUBQ SCH (06:05)
[2019-10-20] MEDS: DEPAKOTE PO SCH ×2 (09:01→21:34)
[2019-10-20] MEDS: LYRICA PO SCH ×2 (09:01)
[2019-10-20] MEDS: NON-FORMULARY MED PO SCH (09:01)
[2019-10-20] MEDS: DITROPAN PO SCH ×2 (09:01→21:35)
[2019-10-20] MEDS: ASPIRIN PO SCH (09:02)
[2019-10-20] MEDS: FOLIC ACID PO SCH (09:02)
[2019-10-20 16:56] LABS: HEMATOCRIT 42.8 % (42.0-52.0); HEMOGLOBIN 14.1 g/dL (14.0-18.0); MCH 28.1 PG (27-31); MCHC 32.9 g/dL (33-37); MCV 85.4 FL (81-99); MPV 10.1 FL (7.4-10.4); RBC 5.01 XMIL (4.7-6.1); RDW 14.6 % (11.5-14.5); WBC 4.44 X1000 (4.8-10.8)
[2019-10-20 17:22] LABS: AGAP 14; BUN 23 mg/dL (8-22); CALCIUM 9.1 mg/dL (8.8-10.2); CHLORIDE 107 mmol/L (98-107); COSMO 284; ESTIMATED GFR > 60; GLUCOSE 145 mg/dL (70-104); POTASSIUM 4.2 mmol/L (3.5-5.1); SODIUM 139 mmol/L (136-145); TCO2 18 mmol/L (25-35)
--- NOTE | 2019-10-20 18:08 | PROGRESS NOTE ---
DATE: 10/20/2019 SUBJECTIVE: Patient has no major complaints. OBJECTIVE: Vital signs: Blood pressure is 118/67, heart rate 61, respiratory rate 18, temperature 97.5 degrees. Cardiovascular: Regular rate and rhythm. Pulmonary: Bilateral breath sounds, clear to auscultation. GI: Soft, nontender, nondistended. Bowel sounds are positive. LABORATORY DATA: CRP 7.48, CPK is 48. PROBLEM LIST: 1. Polyneuropathy with some focal right-sided weakness with really no clear diagnosis. I am not quite sure what else we are going to do for workup at this point. I do think he needs nerve conduction studies. In any case, I may get Neurology to re-round on him tomorrow. I do not have clear etiology. They discussed getting him transferred to another hospital, which I will certainly look into it, but we do not have any objective diagnosis. So, I am not entirely sure what else we are going to do from that standpoint. I am going to stop the Lyrica in case there is some issues with confusion. 2. Folate deficiency. We will supplement and follow. DISPOSITION: If transfer is not an option, which I do not think it will be, we will have to look at going to [facility] and getting re-evaluated, things of that nature. cc: Wes Khan MD
[2019-10-21] MEDS: LOVENOX SUBQ SCH (05:43)
[2019-10-21] MEDS: TYLENOL PO PRN ×2 (05:43→22:41)
[2019-10-21] MEDS: FOLIC ACID PO SCH (09:30)
[2019-10-21] MEDS: NON-FORMULARY MED PO SCH (09:30)
[2019-10-21] MEDS: DEPAKOTE PO SCH ×2 (09:30→22:41)
[2019-10-21] MEDS: ASPIRIN PO SCH (09:30)
[2019-10-21] MEDS: DITROPAN PO SCH ×2 (09:30→22:41)
[2019-10-21] MEDS: VITAMIN D PO SCH (09:38)
[2019-10-21] MEDS ORDERED: PATIENT'S OWN MED NAS PRN (17:06)
--- NOTE | 2019-10-21 18:47 | PROGRESS NOTE ---
DATE: 10/21/2019 SUBJECTIVE: The patient is frustrated because he has been here 11 days and has no diagnosis and has not improved, but we do not have any objective data why he has hemiparesis which is understandable, but we have no objective data. OBJECTIVE: Vital signs: Blood pressure 90/60, heart rate 66, respiratory rate 16, temperature 97.9 degrees, 98% on room air. He still can't move his right arm or his right leg reportedly, although he does resist a little bit against gravity. He has chronic migraines that have not been able to be controlled as an outpatient for which he was going to a headache clinic/migraine clinic. LABORATORY DATA: White count 4.4, hemoglobin and hematocrit 14 and 42, platelets 212,000. CRP is mildly elevated. Valproate is 41. PROBLEM LIST: 1. Polyneuropathy. Really unclear source. We do not really have a diagnosis. He does not seem to have anything central. We will CT his C-spine and his lumbar spine just to see if there is anything going on there, but it is very unusual to have right-sided hemiparesis and there are no central lesions. There is really no evidence of any clear diagnosis. We may need Neurology to re-evaluate him. He is frustrated. He is not able to go to [facility], but they have refused him because he does not have a primary diagnosis. 2. Folate deficiency. We will continue to supplement and follow. DISPOSITION: Pending clinical status. I have encouraged him to follow up with a swing bed at [facility] because it is available and he can get PT, assuming there is no other major testing that else needs to be none. I did broach with him the possibility that this could be a psychological issue like a conversion disorder and with the family, because we have no objective data, but per the family, he has never had any depression or anxiety or issues from that standpoint, but he just seems unusual presentation and no objective findings, but we will continue to follow. cc: Wes Khan MD
[2019-10-22] MEDS: LOVENOX SUBQ SCH (05:49)
[2019-10-22] MEDS: DITROPAN PO SCH ×2 (10:51→22:51)
[2019-10-22] MEDS: ASPIRIN PO SCH (10:52)
[2019-10-22] MEDS: NON-FORMULARY MED PO SCH (10:52)
[2019-10-22] MEDS: DEPAKOTE PO SCH ×2 (10:52→22:50)
[2019-10-22] MEDS: FOLIC ACID PO SCH (10:57)
--- NOTE | 2019-10-22 14:54 | Diag Imaging Result Doc PS360 ---
EXAM: MRI CERVICAL SPINE W/O CON HISTORY: right side weakness TECHNIQUE: MRI cervical spine without contrast. Axial and sagittal images obtained in multiple sequences. COMPARISON: None. FINDINGS: There is good alignment to the cervical spine. No precervical soft tissue swelling. No subluxation. Small degenerative bone spurs. C2-3: Normal disc. No spinal stenosis or cord compression. Mild narrowing of the left neural foramen. C3-4: Minimal disc bulge. Mild spinal stenosis. No cord compression. Mild narrowing of each neural foramen. C4-5: No significant disc bulge. Mild bony narrowing to the canal. No cord compression. Mild narrowing of each neural foramen. C5-6: Small to moderate disc bulge. Mild facet hypertrophy. Findings result in moderate spinal stenosis and mild cord compression. Minimal neural foraminal narrowing. C6-7: Normal disc. No cyst spinal stenosis or cord compression. Neither neural foramen is narrowed. C7-T1: Normal disc. No spinal stenosis or cord compression. Neither neural foramen is narrowed. No disc herniation or disc fragment. No focal abnormality to the cervical cord. There may be a tiny syrinx in the upper thoracic cord. Thoracic MRI to follow. IMPRESSION: Small bulging discs and facet hypertrophy resulting in multilevel mild to moderate spinal stenosis and cord compression. No disc herniation or disc fragment. Electronically signed by Nathen Patterson 10/22/2019 2:51 PM
--- NOTE | 2019-10-22 14:56 | Diag Imaging Result Doc PS360 ---
EXAM: MRI BRAIN W/O CONTRAST HISTORY: right sided weakness TECHNIQUE: MRI brain without contrast. Axial, sagittal, and coronal images obtained in multiple sequences. COMPARISON: 10/10/2019 FINDINGS: No recent infarct. No mass or midline shift. No hydrocephalus. No epidural or subdural fluid collection. Normal orbits. No sinus opacification or air-fluid levels. IMPRESSION: Negative MRI of the brain. Electronically signed by Nathen Patterson 10/22/2019 2:54 PM
--- NOTE | 2019-10-22 15:25 | Diag Imaging Result Doc PS360 ---
EXAM: MRI THORACIC SPINE W/O CON HISTORY: right side weakness TECHNIQUE: MRI thoracic spine without contrast. Axial and sagittal images obtained in multiple sequences. COMPARISON: None. FINDINGS: There is good alignment to the thoracic spine. No compressed vertebra. No subluxation. No disc herniation or disc fragment. No bulging disc. No spinal stenosis or cord compression. No definite syrinx. No other abnormality. IMPRESSION: Negative exam Electronically signed by Nathen Patterson 10/22/2019 3:22 PM
--- NOTE | 2019-10-22 15:44 | Diag Imaging Result Doc PS360 ---
EXAM: MRI LUMBAR SPINE W/WO CONTRAST HISTORY: Weakness Right Side TECHNIQUE: MRI lumbar spine with and without intravenous contrast. Axial and sagittal images obtained in multiple sequences. These are followed by post contrasted sagittal images. COMPARISON: None. FINDINGS: There is good alignment to the lumbar spine. No compressed vertebra. No subluxation. No disc herniation or disc fragment. No spinal stenosis or cord compression. The conus is at L1-2. Loss of the normal water content to the L5-S1 disc. Mild to moderate facet hypertrophy in the lower lumbar spine. No neural foraminal narrowing. No enhancing lesion on the post contrasted images. IMPRESSION: Negative exam. Electronically signed by Nathen Patterson 10/22/2019 3:42 PM
[2019-10-22] MEDS: SOLU-MEDROL IV SCH ×2 (18:36→22:48)
--- NOTE | 2019-10-22 21:18 | PROGRESS NOTE ---
DATE: 10/22/2019 SUBJECTIVE: Patient notes that he is still having difficulty moving his right arm and right leg. PHYSICAL EXAMINATION: Vital Signs: Reviewed. Temperature 98.2, pulse 71, respiratory rate 18, BP 100/63. General: Patient is awake. He is pleasant. He is in no distress. Speech is actually stronger today than it was on admission and for the first couple of days. HEENT: Normocephalic. Neck: Supple. Cardiovascular: Regular rate. Chest: Clear. Abdomen: Soft. Extremities: He has no edema. He moves his left upper and lower extremity without issues. His right upper and lower extremity he is unable to move. ASSESSMENT: 1. Small bulging disk with multilevel mild to moderate spinal stenosis and mild cord depression on his cervical MRI. His thoracic MRI is negative. Brain MRI is negative for any recent infarct, mass, or midline shift. No hydrocephalus. No epidural or subdural fluid collections. His lumbar MRI is also negative with the exception of mild to moderate facet hypertrophy. 2. Polyneuropathy. 3. Right-sided weakness. PLAN: I did discuss with Mr. To that his CT of the head, carotids, and MRI of his head were all negative. Did not have his MRI of his neck at the time. Although he does have some spinal stenosis, it seems quite highly unlikely that this would have caused not only muscle weakness, but also numbness in his entire right upper and right lower extremity, so I certainly do not expect that this is the cause of his current symptoms. Hopefully we can transition him to rehab, and he will be able to participate more with physical therapy. cc: Manpreet Mccoy MD
[2019-10-22] MEDS: TYLENOL PO PRN (22:51)
[2019-10-23] MEDS: LOVENOX SUBQ SCH (06:49)
[2019-10-23] MEDS: SOLU-MEDROL IV SCH ×2 (07:44→17:42)
[2019-10-23] MEDS: FOLIC ACID PO SCH (11:46)
[2019-10-23] MEDS: ASPIRIN PO SCH (11:46)
[2019-10-23] MEDS: NON-FORMULARY MED PO SCH (11:46)
[2019-10-23] MEDS: PREDNISONE PO SCH ×2 (11:47→21:50)
[2019-10-23] MEDS: DITROPAN PO SCH ×2 (11:47→21:50)
[2019-10-23] MEDS: DEPAKOTE PO SCH ×2 (11:47→21:50)
--- NOTE | 2019-10-24 01:08 | PROGRESS NOTE ---
DATE: 10/23/2019 SUBJECTIVE: The patient has multiple questions today. He has no new changes. 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 OBJECTIVE: Vital signs: Temperature 98.1, pulse 64, respiratory rate 18, BP 94/56. General: Patient is in no current respiratory distress. HEENT: Normocephalic. Neck: Supple. Cardiovascular: Regular rate. Chest: Clear, nonlabored. Abdomen: Soft, nondistended. Extremities: He has no edema in his extremities. Neurologic: He has no focal changes from previous exams. Still has decreased sensation and movement of his right upper and lower extremity. ASSESSMENT: 1. Cervical disk disease. 2. Polyneuropathy. 3. Right-sided weakness. PLAN: Discussed with patient that it is extremely unlikely that his cervical spine mild bulging disk is causing his lower extremity weakness or numbness. Discussed that all the symptoms should be expected to completely resolve. We are going to try steroids and see if this will help. Hopefully, we can discharge to rehab in the morning. cc: Manpreet Mccoy MD
[2019-10-24] MEDS: SOLU-MEDROL IV SCH ×2 (03:55→10:35)
[2019-10-24] MEDS: LOVENOX SUBQ SCH (06:26)
--- NOTE | 2019-10-24 10:26 | Diag Imaging Result Doc PS360 ---
EXAM: CHEST-PORTABLE - 10/24/2019 HISTORY: rehab TECHNIQUE: Portable chest COMPARISON: None. FINDINGS: Heart size is normal. The lungs appear clear. There is no pleural effusion or pneumothorax identified. IMPRESSION: No evidence of acute disease. Electronically signed by Jey Obregon 10/24/2019 10:24 AM
[2019-10-24] MEDS: DITROPAN PO SCH (10:34)
[2019-10-24] MEDS: DEPAKOTE PO SCH (10:35)
[2019-10-24] MEDS: FOLIC ACID PO SCH (10:35)
[2019-10-24] MEDS: PREDNISONE PO SCH (10:35)
[2019-10-24] MEDS: ASPIRIN PO SCH (10:35)
[2019-10-24] MEDS: NON-FORMULARY MED PO SCH (10:36)
[2019-10-24 10:56] VITALS: BP 113/75
--- NOTE | 2019-10-24 12:37 | DISCHARGE SUMMARY ---
ADMISSION DATE: 10/10/2019 DISCHARGE DATE: 10/24/2019 DIAGNOSES: 1. Known migraine headaches managed with topiramate, and divalproex. 2. Subjective right-sided weakness. 3. Acute neurologic event, likely stress related that waxes and wanes. 4. Folate deficiency. 5. Cervical disk disease. 6. Polyneuropathy with some focal right-sided weakness with no clear diagnosis. 7. Folate deficiency. 8. Cervical disk disease. 9. Generalized weakness. 10. History of migraine headaches maintained with current management of topiramate and divalproex. CONSULTATIONS: Dr. Ming Hernández, Neurology. DIAGNOSTICS: 1. 10/10/2019 CT of the head revealed no visible acute intracranial abnormality. No hemorrhage or mass effect. 2. 09/30/2019, brain MRA. 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 3. 10/10/2019, brain MRI, unremarkable exam. No evidence of infarct. 4. 10/22/2019, lumbar spine MRI revealed negative exam. 5. 10/22/2019, thoracic spine MRI revealed negative exam. 6. Cervical spine MRI revealed small bulging disks and facet hypertrophy resulting in multilevel [id number] spinal stenosis and cord compression. There may be a tiny syrinx in the upper thoracic cord. 7. 10/24/2019 chest x-ray revealed no evidence of acute disease. HOSPITAL COURSE: Mr. To presented to the emergency room after waking with a headache, went to work, and had right upper and lower extremity weakness. He states that he did not fall nor have difficulty walking, but he did report some tingling to the extremities. Therefore, he came to the emergency room. CT of the head was normal. Labs were normal. During the hospitalization, symptoms did wax and wane as he would be unable to plantar flex or dorsiflex his foot while sitting in a chair, but when he stood he was able to use his leg to weight check. 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 He was evaluated by Dr. Hernández, neurology, who could not find a definite objective deficit. He did warn the patient that he should not get into any situation which is right-sided impairment that could cause him to injure himself or others. He specifically suggested he did not drive. 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 It was at this time that Dr. Mccoy had discussed the patient being discharged. He stated he was uncomfortable going home. He would rather go to rehab, so [employer] was consulted. The patient wanted to go to [facility] although they refused the patient as he had no definite diagnosis. He was found to have a folate deficiency. This has been supplemented daily. He was evaluated by Occupational Therapy as well as Physical Therapy. Thankfully, [facility] had a swing bed and the patient has agreed to go. DISCHARGE VITAL SIGNS: Blood pressure is 113/75 with heart rate of 65, respirations 18, and temperature 97.7 degrees with room air saturations 99%. DISCHARGE PHYSICAL EXAMINATION: Cardiovascular: Regular rate and rhythm. S1 and S2 appreciated. Calves are nontender bilateral. Pulmonary: Breath sounds are clear with no increased work of breathing noted. Chest rises and falls symmetric with respiration Gastrointestinal: Abdomen is soft, nontender, and nondistended with bowel sounds in all 4 quadrants. : No CVA or suprapubic tenderness. Neurologic: He is alert and oriented. Pupils are equal, round, and react to light. EOMs are intact. Speech is not dysarthric. Facial motility is symmetric. He has no tongue or uvula deviation. Gag is intact. Equal shoulder shrug. Left upper and lower extremity strength is 5/5. Right upper and lower extremity strength is a 2/5. Of note when I passively elevated his right arm up, he did control the arm to a rather soft descent back to his lap. DISCHARGE MEDICATIONS: 1. Phenergan 25 mg p.o. at bedtime. 2. Ditropan 2.5 p.o. b.i.d. 3. Zofran 8 mg p.o. q.8 hours p.r.n. 4. Depakote 500 p.o. b.i.d. 5. Tylenol 650 q.6 hours p.r.n. 6. Zomig nasal spray p.r.n. 7. Topiramate 100 mg p.o. daily. 8. Vitamin D2 25320 units daily. 9. Folic Acid 1 mg p.o. daily. DISPOSITION: He is being discharged to rehab in stable condition with family members present. TIME SPENT: This is a greater than 30 minute discharge. Dictated by TEODORO Hunt for Manpreet Mccoy MD cc: TEODORO Hunt MD
--- NOTE | 2019-10-25 17:21 | DISCHARGE SUMMARY ---
ADMISSION DATE: 10/10/2019 DISCHARGE DATE: 10/24/2019 ADDENDUM: Patient seen and examined by myself. Full note dictated discussed with nurse practitioner. The patient does not appear to have had an acute stroke. Thankfully, his MRI on admission as well as MRI of his brain yesterday were negative. He does have some cervical pathology, although mild. He has no lumbar or thoracic pathology. He has no other lesions or brain tumors. He has a history of migraines and hopefully simply a complicated migraine and will resolve. We will transfer patient to rehab and will follow. cc: Manpreet Mccoy MD
== END 2019-10-24 14:54 | disposition swing bed (61) | DRG 103 ==
LOC: P.ED 08:31 → OBSVTOIN 10:39 → SUATTDRO 10:39 → INTOOBSV 10:39 → P.MEDSURG 11:05
PROVIDERS: ATTEND Family Medicine